=== PATIENT | male | born 1960 | race Caucasian/White ===

== ENCOUNTER 2022-07-18 07:40 | Observation (INO) | payer BC ==
[2022-07-17 17:16] VITALS: BMI 32.3
[2022-07-18] MEDS ORDERED: Lidocaine 1% (PF) 30 ML VIAL ONE (09:33)
[2022-07-18] MEDS ORDERED: Bacitracin Zinc Ointment 30 gm TUBE ONE (09:33)
[2022-07-18] MEDS ORDERED: EPINEPHrine 1 MG/ML AMP ONE (09:33)
[2022-07-18] MEDS ORDERED: Ciprofloxacin 0.2% Otic (0.25ML CONTAINER) ONE (09:33)
[2022-07-18] MEDS ORDERED: Fentanyl 250 MCG/5 ML VIAL ONE (10:07)
[2022-07-18] MEDS ORDERED: SUGAMMADEX SODIUM 200 MG/2 ML VIAL ONE (10:08)
[2022-07-18] MEDS ORDERED: PROPOFOL 200 MG/20 ML VIAL ONE (10:40)
[2022-07-18] MEDS ORDERED: Dexamethasone 20 MG/5 ML VIAL ONE (10:40)
[2022-07-18] MEDS ORDERED: Lidocaine 1% PF 5 ML VIAL ONE (10:40)
[2022-07-18] MEDS ORDERED: Rocuronium Bromide 10 MG/ML (10ML VIAL) ONE (10:40)
[2022-07-18] MEDS ORDERED: Albuterol HFA (OR) 200 PUFF INH ONE ×2 (10:40→11:33)
[2022-07-18] MEDS ORDERED: Ondansetron PF 4 MG/2 ML Vial ONE (10:40)
[2022-07-18] MEDS ORDERED: Meperidine HCl/PF 25 MG/ML VIAL SLOW IVP PRN (11:25)
[2022-07-18] MEDS ORDERED: HYDROmorphone 2 MG/ML VIAL SLOW IVP PRN (11:25)
[2022-07-18] MEDS ORDERED: Promethazine HCl 25 MG/ML VIAL IM PRN (11:25)
[2022-07-18] MEDS ORDERED: Bacitracin 1 PK TOP PRN (12:14)
[2022-07-18] MEDS ORDERED: Ondansetron PF 4 MG/2 ML Vial IVP PRN (12:15)
[2022-07-18] MEDS ORDERED: HYDROcodone/Acetaminophen 5/325 mg Tablet PO PRN ×2 (12:16)
[2022-07-18] MEDS ORDERED: Ibuprofen 800 MG TAB PO PRN (12:17)
[2022-07-18] MEDS ORDERED: Sodium Chloride 0.9% 100 ML ONE (12:57)
[2022-07-18] MEDS ORDERED: CEFAZOLIN 1 GM VIAL ONE (12:57)
[2022-07-18] MEDS ORDERED: cefTRIAXone (ROCEPHIN) 1 GM VIAL ONE (13:08)
[2022-07-18] MEDS: cefTRIAXone\\ROCEPHIN 1 GM in Sodium Chloride 0.9% 100 ML IVPB SCH (13:16)
[2022-07-18] MEDS: Sodium Chloride 0.45% 1,000 ML IV SCH ×3 (15:39→20:09)
[2022-07-18] MEDS: Vancomycin 1.5 GRAM/300 ML BAG 1.5 GM in Premix Bag 1 BAG IVPB SCH (15:40)
[2022-07-18] MEDS ORDERED: FLU VACC QS2022-23(6MO UP)/PF 60 MCG/0.5 ML SYRINGE IM ONE (15:45)
[2022-07-18] MEDS: Ciprofloxacin 0.2% Otic (0.25ML CONTAINER) L EAR SCH (20:00)
[2022-07-19] MEDS: cefTRIAXone\\ROCEPHIN 1 GM in Sodium Chloride 0.9% 100 ML IVPB SCH (00:05)
[2022-07-19] MEDS: Vancomycin 1.5 GRAM/300 ML BAG 1.5 GM in Premix Bag 1 BAG IVPB SCH (01:45)
[2022-07-19 03:55] VITALS: TEMP 97.9
[2022-07-19 07:46] VITALS: BP 124/60
[2022-07-19] MEDS: Ciprofloxacin 0.2% Otic (0.25ML CONTAINER) L EAR SCH (10:07)
[2022-07-19] MEDS: Sodium Chloride 0.45% 1,000 ML IV SCH (11:31)
== END 2022-07-19 12:45 | disposition home or self-care (01) ==
LOC: SDC 07:40 → T4-B 14:55
PROVIDERS: ADMIT Otolaryngology Plastic Surgery within the Head & Neck; ATTEND Otolaryngology Plastic Surgery within the Head & Neck
PROC: 0NB60ZZ Excision of Left Temporal Bone, Open Approach (ICD-10-PCS; principal; 2022-07-18)
PROC: 099600Z Drainage of Left Middle Ear with Drainage Device, Open Approach (ICD-10-PCS; 2022-07-18)
DX: H70.92 Unspecified mastoiditis, left ear (principal); H65.22 Chronic serous otitis media, left ear; H92.12 Otorrhea, left ear; H91.92 Unspecified hearing loss, left ear; H69.92 Unspecified Eustachian tube disorder, left ear; Z86.16 Personal history of COVID-19; Z79.2 Long term (current) use of antibiotics; Z79.82 Long term (current) use of aspirin; Z79.899 Other long term (current) drug therapy
CPT/HCPCS: 93005; 93010; J0171; J0690; J0696; J1100; J2001; J2405; J2704; J3010; J3370; J3490; L8613